=== PATIENT | male | born 1945 | race Caucasian/White ===

== ENCOUNTER 2017-01-11 12:33 | Emergency (ER) | payer MEDICARE, OTHER ==
[~2017-01-11] VITALS: Ht 177.8 cm; Wt 95.0 kg
[2017-01-11 12:35] VITALS: Ht 177.8 cm; Wt 95.0 kg
[2017-01-11] MEDS ORDERED: ACETAMINOPHEN 650 MG SUPP PR STA (12:37)
[2017-01-11] MEDS ORDERED: SODIUM CHLORIDE 0.9% 1L BAG IV* STA (12:37)
[2017-01-11 13:03] LABS: AADO2 Arterial 317.2 mmHg (7.0-24.0); Allen Test ACCEPTAB; Arterial Base Excess 0.6 mmol/L (-3.0-3); Arterial COHb 0.3 % (0.0-3.0); Arterial Fraction of Oxyhgb 93.8 % (93.0-99.0); Arterial HCO3 24.4 mmol/L (22.0-26.0); Arterial MetHb 0.1 % (0.0-1.5); Arterial Total Hemglobin 10.1 g/dl (12.0-18.0); Blood Gas Low PEEP Setting 0 cmH2O; MODE VENT - AC
[2017-01-11 13:13] LABS: BASOPHILS % 0.1 % (0.0-2.0); HEMATOCRIT 28.3 % (42.0-52.0); HEMOGLOBIN 9.4 g/dl (14.0-18.0); LYMPHOCYTES # 1.5 10^3/ul (0.8-2.9); LYMPHOCYTES % 9.8 % (15.0-51.0); MEAN CORPUSCULAR HGB CONC 33.2 g/dl (32.0-37.0); MEAN CORPUSCULAR VOLUME 96.3 fl (82.0-101.0); MEAN PLATELET VOLUME 10.8 fl (7.4-10.4); MONOCYTE # 0.7 10^3/ul (0.3-0.9); MONOCYTES % 4.6 % (0.0-11.0); NEUTROPHILS % 84.4 % (39.0-77.0); PLATELET COUNT 245 10^3/UL (140-415); RED BLOOD COUNT 2.94 10^6/ul (4.70-6.10); RED CELL DISTRIBUTION WIDTH 15.9 % (11.5-14.5); WHITE BLOOD COUNT 15.1 10^3/ul (4.8-10.8)
--- NOTE | 2017-01-11 13:21 | RADRPT ---
PROCEDURE: Chest radiograph CLINICAL INDICATION: Possible Sepsis. COMPARISON: Radiograph 11/27/2016. TECHNIQUE: Single frontal chest radiograph. FINDINGS: Tracheostomy terminates in level of clavicles, in expected position. Low lung volumes. Left lower lung alveolar opacity which may represent pulmonary edema or pneumonia. Small left pleural effusion. Mild endplate spurring throughout the thoracic spine. IMPRESSION: 1. Left mid lung opacity, suspicious for pneumonia. 2. Small left pleural effusion RPTAT: [facility] Physician Jenifer Date Time Electronically viewed and signed by Franko Cook Physician on 01/11/2017 13:21 LG/
[2017-01-11 13:28] LABS: INR 1.01; PROTIME 13.3 Sec (12.2-14.2)
[2017-01-11 13:29] LABS: PARTIAL THROMBOPLASTIN TIME 49.5 Sec (25.0-35.0)
[2017-01-11 13:30] LABS: ALBUMIN/GLOBULIN RATIO 0.75; CALCIUM 8.3 mg/dl (8.4-10.2); CREATININE 0.81 mg/dl (0.61-1.24); POTASSIUM 4.3 mmol/L (3.5-5.1)
[2017-01-11] MEDS ORDERED: VANCOMYCIN 1 GM (PMX) 250 ML IVPB STA (13:31)
[2017-01-11] MEDS ORDERED: PIPER-TAZO 3.375 GM IV (PMX) 100 ML IVPB STA (13:31)
[2017-01-11 13:42] LABS: TROPONIN-I 0.087 ng/ml (0.00-0.12)
[2017-01-11] MEDS ORDERED: SOD CHLORIDE 0.9% 1,000 ML IV STA (14:28)
--- NOTE | 2017-01-11 14:56 | ERA ---
ER Documentation Chief Complaint Date/Time DATE: 01/11/17 TIME: 14:36 Chief Complaint Patient IVÁN with complaint of more Altered than normal HPI This is a 71-year-old male trach to vent dependent, with encephalopathy and type 2 diabetes mellitus that presents to the emergency department from [facility]. The patient appeared more altered than normal according to nursing staff. The patient is normally a phasic but will open his eyes and has minimal movement of his upper extremities. There is no documentation is to the Q changes that nursing staff noticed however there was documentation that the patient had bilateral rhonchi and concern for respiratory complication. The patient has a Shiley Size 8 and is on assist control at a rate of 14 with a tidal volume of 600 and an FiO2 of 40% at baseline. The patient is also a DO NOT RESUSCITATE with limited interventions which include IV fluids and antibiotics. The patient denies blood transfusion or any other invasive measures. It is unknown with the patient's last hospitalization was or if he is currently on any antibiotics. He did have a low -grade fever upon arrival to the emergency and no antipyretics were given prior to arrival. ROS All systems reviewed and are negative except as per history of present illness. Medications Home Meds Reported Medications Sod Phosphate/Sod Biphosphate* (Fleet* Enema Pediatric) 66.6 Ml Soln, 66.6 ML ND DAILY Y for CONSTIPATION, ENEMA 01/11/17 Bisacodyl (Dulcolax) 10 Mg Supp.rect, 10 MG RC DAILY Y for CONSTIPATION, SUPP.RECT 01/11/17 Magnesium Hydroxide* (Milk Of Magnesia*) 400 Mg/5 Ml Oral.susp, 30 ML GTB QHS Y for CONSTIPATION, ML 01/11/17 Docusate Sodium* (Colace*) 100 Mg Capsule, 100 MG PO QHS Y for CONSTIPATION, # 30 CAP 01/11/17 Acetaminophen* (Acetaminophen*) 650 Mg Tablet, 650 MG PO Q4 Y for PAIN AND OR ELEVATED TEMP, #30 TAB 01/11/17 Insulin Glargine* (Lantus*) 100 Unit/Ml Soln, 10 UNIT SC QHS, #1 VIAL 01/11/17 Insulin Regular, Human (Humulin R) 100 Unit/1 Ml Vial, 0-12 UNIT IJ AC MEALS, VIAL 01/11/17 Mupirocin* (Bactroban*) 2% -22 Gram Oint...g., 1 APPLIC TOP BID, #1 TUB SITE OF APPLICATION: 01/11/17 Clonidine Hcl* (Clonidine Hcl*) 0.1 Mg Tab, 0.1 MG GTB Q6 Y for ELEVATED BLOOD PRESSURE, TAB 01/11/17 Nitroglycerin* (Nitrostat*) 0.4 Mg Tab.subl, 0.4 MG SL Q5MIN Y for CHEST PAIN, BOTTLE 01/11/17 Metoprolol Tartrate* (Lopressor*) 50 Mg Tab, 50 MG GTB BID, #60 TAB HOLD FOR SBP<110 OR HR<60 01/11/17 Pantoprazole* (Protonix*) 40 Mg Tablet.dr, 40 MG GTB DAILY, TAB 01/11/17 Potassium Chloride* (Potassium Chloride*) 20 Meq/15 Ml Liquid, 20 MEQ GTB DAILY , ML 01/11/17 Heparin Sodium,Porcine/Pf (HEPARIN SOD 5,000 UNIT/ 0.5 ML) 5,000 Unit/0.5 Ml Vial, 5000 UNIT IJ Q12, VIAL 01/11/17 Aspirin* (Aspirin* Chew) 81 Mg Tab.chew, 81 MG GTB DAILY, TAB.CHEW 01/11/17 Allergies Allergies: Coded Allergies: No Known Allergy (Unverified , 01/11/17) PMhx/Soc History of Surgery: No Anesthesia Reaction: No Hx Neurological Disorder: No Hx Respiratory Disorders: No Hx Cardiac Disorders: No Hx Psychiatric Problems: No Hx Miscellaneous Medical Probl: Yes Hx Alcohol Use: No Hx Substance Use: No Hx Tobacco Use: No Smoking Status: Never smoker Physical Exam Vitals Vital Signs Date Time Temp Pulse Resp B/P Pulse Ox O2 Delivery O2 Flow Rate FiO2 01/11/17 15:43 102 15 60 01/11/17 15:19 79 20 90/54 98 Room Air 01/11/17 13:17 Nasal Cannula 01/11/17 12:35 100.9 103 20 81/54 98 Physical Exam Constitutional:Well-developed. Well-nourished. HEENT:Normocephalic. Atraumatic.Pupils were equal round reactive to light.Dry mucous membranes.No tonsillar exudates. Neck: Tracheostomy site is clean dry and intact with Shiley in place no nuchal rigidity. No lymphadenopathy. No posterior cervical spine tenderness or step- offs. Respiratory: Not using accessory muscles of respiration.Lungs were clear to auscultation bilaterally. No rhonchi. No rales. No wheezing. Cardiovascular: Regular rate regular rhythm.No murmurs. No rubs were appreciated.S1, S2 normal. Distal pulses are palpable 2+ bilaterally. GI: Abdomen was soft. Nontender. Non Distended. No pulsatile abdominal masses or bruits. No rebound. No guarding. Bowel sounds were present and normal. PEG tube in place. Muscle skeletal: Patient is no movement of bilateral lower extremities with atrophy. 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 No lesions on the palms or the soles of the feet. No maculopapular rash. NEURO: Patient opened eyes and responds to pain. Patient is aphasic. Result Diagram: 01/11/17 1250 01/11/17 1250 Results 24 hrs Laboratory Tests Test 01/11/17 12:50 01/11/17 12:53 01/11/17 14:45 White Blood Count 15.110^3/ul Red Blood Count 2.9410^6/ul Hemoglobin 9.4g/dl Hematocrit 28.3% Mean Corpuscular Volume 96.3fl Mean Corpuscular Hemoglobin 32.0pg Mean Corpuscular Hemoglobin Concent 33.2g/dl Red Cell Distribution Width 15.9% Platelet Count 53792^3/UL Mean Platelet Volume 10.8fl Neutrophils % 84.4% Lymphocytes % 9.8% Monocytes % 4.6% Eosinophils % 0.0% Basophils % 0.1% Nucleated Red Blood Cells % 0.0/100WBC Neutrophils # (Manual) 12.810^3/ul Lymphocytes # 1.510^3/ul Monocytes # 0.710^3/ul Eosinophils # 0.010^3/ul Basophils # 0.010^3/ul Nucleated Red Blood Cells # 0.010^3/ul Prothrombin Time 13.3Sec Prothrombin Time Ratio 1.0 INR International Normalized Ratio 1.01 Activated Partial Thromboplast Time 49.5Sec Sodium Level 132mmol/L Potassium Level 4.3mmol/L Chloride Level 92mmol/L Carbon Dioxide Level 27mmol/L Anion Gap 17 Blood Urea Nitrogen 39mg/dl Creatinine 0.81mg/dl Glucose Level 294mg/dl Lactic Acid Level 2.3mmol/L Calcium Level 8.3mg/dl Total Bilirubin 0.0mg/dl Direct Bilirubin 0.00mg/dl Indirect Bilirubin 0.0mg/dl Aspartate Amino Transf (AST/SGOT) 45IU/L Alanine Aminotransferase (ALT/SGPT) 54IU/L Alkaline Phosphatase 132IU/L Troponin I 0.087ng/ml B-Type Natriuretic Peptide 6650PG/ML Total Protein 7.0g/dl Albumin 3.0g/dl Globulin 4.00g/dl Albumin/Globulin Ratio 0.75 Amylase Level 56U/L Lipase 54U/L Blood Gas Specimen Source Blood arterial Arterial Blood Date Drawn 01/11/2017 1:00:55 PM Arterial Blood pH (Temp corrected) 7.445 Arterial Blood pCO2 (Temp correct) 36.4mmhg Arterial Blood pO2 (Temp corrected) 70.6mmHG Arterial Blood HCO3 24.4mmol/L Arterial Blood Base Excess 0.6mmol/L Arterial Blood Oxygen Saturation 94.2mmHG Jamir Test ACCEPTAB Arterial Blood Gas Puncture Site Right Radial Arterial Blood Carboxyhemoglobin 0.3% Arterial Blood Methemoglobin 0.1% Blood Gas A-a O2 Differential 317.2mmHg Oxyhemoglobin Percent 93.8% Total Hemoglobin 10.1g/dl Blood Gas Temperature 37.0C Blood Gas Respiration Rate 14.0 Blood Gas Actual Respiration Rate 23 Blood Gas Modality VENT - AC FiO2 60.0% Blood Gas Tidal Volume 600.0mL Blood Gas Low PEEP Setting 0cmH2O Blood Gas Notified Whom RT Blood Gas Notified Time 01/11/2017 1:03:30 PM Urine Color YELLOW Urine Clarity SLIGHTLY CLOUDY Urine pH 6.0 Urine Specific [place]send 1.009 Urine Ketones NEGATIVEmg/dL Urine Nitrite NEGATIVEmg/dL Urine Bilirubin NEGATIVEmg/dL Urine Urobilinogen NEGATIVEmg/dL Urine Leukocyte Esterase NEGATIVELeu/ul Urine Microscopic RBC 1/HPF Urine Microscopic WBC 3/HPF Urine Hemoglobin NEGATIVEmg/dL Urine Glucose 3+mg/dL Urine Total Protein 2+mg/dl Current Medications Medications (Trade) Dose Ordered Sig/Casandra Route PRN Reason Start Time Stop Time Status Last Admin Dose Admin Sodium Chloride (NS) 2,480 ml BOLUS OVER 2 HOURS STAT IV* 01/11/17 12:37 01/11/17 12:40 DC 01/11/17 13:29 Acetaminophen 650 mg 650 mg ONCE STAT ND 01/11/17 12:37 01/11/17 12:40 DC 01/11/17 13:28 Vancomycin HCl 250 ml @ 125 mls/hr ONCE STAT IVPB 01/11/17 13:31 01/11/17 15:30 DC 01/11/17 15:35 Piperacillin Sod/ Tazobactam Sod 100 ml @ 200 mls/hr ONCE STAT IVPB 01/11/17 13:31 01/11/17 14:00 DC 01/11/17 14:06 Sodium Chloride (NS) 1,000 ml @ 1,000 mls/hr Q1H STAT IV 01/11/17 14:28 01/11/17 15:27 DC 01/11/17 14:54 Procedures/MDM The patient presented to the emergency department with an acute and persistent change in their mental status. The differential diagnosis is diverse however reversible causes such as hypoglycemia, opiate overdose, thiamine deficiency were immediately considered. The patient was placed on a viscera washer, continuous pulse oximetry and IV access was established. The patients airway was secure however hypoxic events such as anemia, shock, or severe pulmonary disease were all considered as etiologies in this patients presentation. Circulation assessed with good cap refill and did not require fluids or pressure support. Finger stick for rapid glucose determined to be normal. The patient did meet sirs criteria and was concern for sepsis while upon arrival to the emergency department. Therefore the patient had IV access that was established by nursing staff and was given a 30 cc/kg bolus of normal saline. I obtained a chest radiograph Which confirmed a mid left lung opacity likely suspicious for pneumonia. Given that this could be a result of an aspiration pneumonia the patient started on broad-spectrum antibiotics which included IV Zosyn and vancomycin. Infectious Source: Pneumonia End organ damage indicated by: Lactate > 2.0 mmol/L Hypotension( SBP < 90 or >40 mmHG drop or MAP < 65) Acute Resp Failure (sat < 92% w/o oxygen) Severe Sepsis Managment: Blood Cultures X 2 before broad spectrum antibiotics initiated within 3 hours of recognition. 30 ml/kg NS bolus Completed Initial Lactate: 2.3 Repeat Lactate pending I considered further perfusion assessment with CVP measurement, SCVO2, bedside ultrasound volume assessment, passive leg raise, trial of further fluid bolus. And preceded with IV fluids The patient had a Barber catheter placed to measure input and output. Critical Care: Time: 60 minutes Treatments/Evaluations: Close monitoring and treatment of unstable vital signs, cardiorespiratory, and neurologic status, while maintaining tight balance of fluid, respiratory, and cardiac interventions. Time does not include performing any of the above billable procedures. 12 Lead EKG tracing ordered and reviewed by myself showed: Sinus tachycardia of 103bpm and no arrhythmia. ND interval normal. QRS duration normal. No ST segment elevation No ST segment depression. No changes consistent with acute ischemia. At [address] Reece who is taking call for the patient's PCP Dr. Portillo. Dr. Reece and I discussed the case and stated that the patient could be safely discharged back to his [facility] rehab facility with antibiotics. Dr. Reece asked for ciprofloxacin and Bactrim to be given to the patient For 10 days. I reviewed all of the labs with the elevated lactate and arterial blood gas with Dr. Reece. He again stated that after treatment in the emergency room that the patient could be discharged back to the nursing care facility for monitoring and treatment of his pneumonia versus being admitted to the hospital. Therefore the patient will be discharged home in fair condition to [facility] rehab with prescriptions for ciprofloxacin and Bactrim and strict instructions to return to the emergency department immediately if there is any worsening of her symptoms. I personally called and spoke with the charge nurse at [facility] to explain the treatment plan. I will arrange for ambulance transfer back to the rehab facility given that the patient is nonambulatory. Critical Care: Time: 40 minutes Treatments/Evaluations: Close monitoring and treatment of unstable vital signs, cardiorespiratory, and neurologic status, while maintaining tight balance of fluid, respiratory, and cardiac interventions. Time does not include performing any of the above billable procedures. Departure Diagnosis: Primary Impression: Aspiration pneumonia Qualified Code: J69.0 - Aspiration pneumonia of left lung, unspecified aspiration pneumonia type, unspecified part of lung Additional Impression: Sepsis Qualified Code: A41.9 - Sepsis, due to unspecified organism Condition: CHAYITO Quevedo Jan 11, 2017 14:46
[2017-01-11] MEDS ORDERED: ASPI81TA3 GTB (15:00)
[2017-01-11] MEDS ORDERED: HEPA500021 IJ (15:03)
[2017-01-11] MEDS ORDERED: POTA20LI5 GTB (15:04)
[2017-01-11] MEDS ORDERED: PANT40TA3 GTB (15:05)
[2017-01-11] MEDS ORDERED: METO-429 GTB (15:06)
[2017-01-11] MEDS ORDERED: NIT4 SL (15:07)
[2017-01-11] MEDS ORDERED: CLON-379 GTB (15:08)
[2017-01-11] MEDS ORDERED: MUPI22OI2 TOP (15:12)
[2017-01-11 15:13] LABS: ADD UMIC YES; UR ASCORBIC ACID 40 mg/dL (NEGATIVE); UR BILIRUBIN (Dip) NEGATIVE (NEGATIVE); UR BLOOD (Dip) NEGATIVE (NEGATIVE); UR CLARITY SLIGHTLY CLOUDY (CLEAR); UR COLOR YELLOW (YELLOW); UR GLUCOSE (Dip) 3+ mg/dL (NEGATIVE); UR KETONES (Dip) NEGATIVE (NEGATIVE); UR LEUKOCYTE ESTERASE (Dip) NEGATIVE Leu/ul (NEGATIVE); UR NITRITE (Dip) NEGATIVE (NEGATIVE); UR RBC 1 /HPF (0-5); UR SPECIFIC GRAVITY (Dip) 1.009 (1.003-1.030); UR TOTAL PROTEIN (Dip) 2+ mg/dl (NEGATIVE); UR UROBILINOGEN (Dip) NEGATIVE (NEGATIVE)
[2017-01-11] MEDS ORDERED: INSU100V3 IJ (15:14)
[2017-01-11] MEDS ORDERED: LANT3I SC (15:14)
[2017-01-11] MEDS ORDERED: ACET-2047 PO (15:15)
[2017-01-11] MEDS ORDERED: MAGN400O4 GTB (15:16)
[2017-01-11] MEDS ORDERED: DOCU-144 PO (15:16)
[2017-01-11] MEDS ORDERED: BISA10SU55 RC (15:17)
[2017-01-11] MEDS ORDERED: FLEETPED PR (15:17)
[2017-01-11] MEDS ORDERED: SULF20OR7 PO (15:57)
[2017-01-11] MEDS ORDERED: CIPR500T4 PO (15:57)
[2017-01-11] MEDS ORDERED: SOD CHLORIDE 0.9% 1,000 ML IV ONE (17:00)
[2017-01-11 17:42] VITALS: BP 99/53; PULSE 99; RESP 20; TEMP 99.1
== END 2017-01-11 18:02 | disposition home or self-care (01) ==
LOC: E/R 12:33
DX: J69.0 Pneumonitis due to inhalation of food and vomit (principal); A41.9 Sepsis, unspecified organism; E11.9 Type 2 diabetes mellitus without complications; R07.9 Chest pain, unspecified; Z79.01 Long term (current) use of anticoagulants; Z79.4 Long term (current) use of insulin; Z79.82 Long term (current) use of aspirin
CPT/HCPCS: 36415; 36600; 71010; 80053; 81001; 82150; 82803; 83605; 83690; 83880; 84484; 85025; 85610; 85730; 86850; 86870; 86900; 86901; 87040; 87086; 93005; 94002; 96374; 96375; 99291; J2543; J3370; J7030